=== PATIENT | female | born 1985 | race Caucasian/White ===

== ENCOUNTER → 2018-05-31 | Emergency (ER) | payer MEDICAID ==
[~2018-05-31] VITALS: Ht 162.6 cm; Wt 68.6 kg
[~2018-05-31] MED LIST: METROGEL GEL45 GM TP; ZOFRAN ODT4 MG PO
[2018-05-31 13:06] VITALS: BP 110/68; PULSE 69; TEMP 98.2
== END ==
LOC: COL.ER 12:17
DX: R11.2 Nausea with vomiting, unspecified (principal); R10.9 Unspecified abdominal pain; F32.9 Major depressive disorder, single episode, unspecified; G47.00 Insomnia, unspecified; F41.9 Anxiety disorder, unspecified; K27.9 Peptic ulcer, site unspecified, unspecified as acute or chronic, without hemorrhage or perforation; F17.210 Nicotine dependence, cigarettes, uncomplicated

== ENCOUNTER 2019-07-18 13:14 | Emergency (ER) | payer SELFPAY ==
[~2019-07-18] VITALS: Ht 162.6 cm; Wt 66.4 kg
[2019-07-18 13:25] VITALS: BP 123/69
[2019-07-18] MEDS ORDERED: AMOXICILLIN 8751 TAB PO (14:43)
[2019-07-18] MEDS ORDERED: PREDNISONE20 MG PO (14:43)
[2019-07-18 14:57] VITALS: PULSE 90; TEMP 98.4
== END 2019-07-18 14:57 | disposition home or self-care (01) ==
LOC: COL.ER 13:14
DX: J20.9 Acute bronchitis, unspecified (principal); F17.210 Nicotine dependence, cigarettes, uncomplicated; Z88.1 Allergy status to other antibiotic agents

== ENCOUNTER 2020-12-09 18:28 | Emergency (ER) | payer SELFPAY ==
[~2020-12-09] VITALS: Ht 162.6 cm; Wt 75.9 kg
[~2020-12-09 18:28] MED LIST changes: +AMOXICILLIN 8751 TAB PO; +PREDNISONE20 MG PO
[2020-12-09 18:41] VITALS: BP 123/85; TEMP 98.3
[2020-12-09 19:26] VITALS: PULSE 81
== END 2020-12-09 19:30 | disposition home or self-care (01) ==
LOC: COL.ER 18:28
DX: S93.602A Unspecified sprain of left foot, initial encounter (principal); Z88.1 Allergy status to other antibiotic agents; W11.XXXA Fall on and from ladder, initial encounter

== ENCOUNTER 2022-08-30 05:44 | Emergency (ER) | payer SELFPAY ==
[~2022-08-30] VITALS: Ht 162.6 cm; Wt 72.7 kg
[2022-08-30 05:47] VITALS: BP 122/71; TEMP 97.7
[2022-08-30] MEDS ORDERED: AMOXICILLIN 8751 TAB PO (07:05)
[2022-08-30 07:09] VITALS: PULSE 65
== END 2022-08-30 07:10 | disposition home or self-care (01) ==
LOC: COL.ER 05:44
DX: J20.9 Acute bronchitis, unspecified (principal); Z87.891 Personal history of nicotine dependence; Z88.1 Allergy status to other antibiotic agents

== ENCOUNTER 2023-02-03 11:18 | Emergency (ER) | payer SELFPAY ==
[~2023-02-03] VITALS: Ht 160 cm; Wt 72.7 kg
[~2023-02-03 11:18] MED LIST changes: +EPIPEN 2-PAK1 MG/ML IM
[2023-02-03] MEDS ORDERED: NORCO 325 MG-51 TAB PO (13:21)
[2023-02-03 14:15] VITALS: BP 112/78; PULSE 66; TEMP 97.6
== END 2023-02-03 14:15 | disposition home or self-care (01) ==
LOC: COL.ER 11:18
DX: S70.12XA Contusion of left thigh, initial encounter (principal); S70.11XA Contusion of right thigh, initial encounter; Z87.891 Personal history of nicotine dependence; Z28.310 Unvaccinated for COVID-19; W20.8XXA Other cause of strike by thrown, projected or falling object, initial encounter; Y92.59 Other trade areas as the place of occurrence of the external cause; Y99.0 Civilian activity done for income or pay
CPT/HCPCS: J2270

== ENCOUNTER 2024-05-15 14:22 | Emergency (ER) | payer BC ==
[~2024-05-15] VITALS: Ht 160 cm; Wt 72.7 kg
[~2024-05-15 14:22] MED LIST changes: +NORCO 325 MG-51 TAB PO
[2024-05-15 14:25] VITALS: BP 106/75; TEMP 97.9
[2024-05-15 15:35] VITALS: PULSE 68
== END 2024-05-15 15:37 | disposition home or self-care (01) ==
LOC: COL.ER 14:22
DX: J06.9 Acute upper respiratory infection, unspecified (principal)